=== PATIENT | male | born 1995 | race Hispanic/Latino ===

== ENCOUNTER 2018-04-01 08:53 | Emergency (ER) | payer OTHER, BC ==
[2018-04-01 08:59] VITALS: BMI 30.3
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
[2018-04-01 09:48] VITALS: RESP 18; TEMP 98.2; O2SAT 99
--- NOTE | 2018-04-01 10:33 | RAD ---
PROCEDURE: Cervical Spine Radiographs. HISTORY: Pain. COMPARISON: None. FINDINGS: BONES: Alignment maintained. No fracture. Dens Intact. DISC SPACES: Normal. SOFT TISSUES: Normal. No prevertebral soft tissue swelling. OTHER FINDINGS: None. IMPRESSION: Normal cervical spine radiographs
[2018-04-01 10:48] VITALS: BP 122/76; PULSE 76
== END 2018-04-01 10:49 | disposition home or self-care (01) ==
LOC: ED 08:53
DX: S13.4XXA Sprain of ligaments of cervical spine, initial encounter (principal); V43.52XA Car driver injured in collision with other type car in traffic accident, initial encounter; Y92.410 Unspecified street and highway as the place of occurrence of the external cause
CPT/HCPCS: 72050; 96372; 99285; J1885

== ENCOUNTER 2019-01-10 18:37 | Emergency (ER) | payer BC, OTHER ==
[2019-01-10 18:37] VITALS: BMI 30.3
[2019-01-10 19:05] VITALS: RESP 18; TEMP 99.4
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
[2019-01-10 21:19] VITALS: BP 132/85; PULSE 85; O2SAT 100
== END 2019-01-10 20:30 | disposition home or self-care (01) ==
LOC: ED 18:37
DX: R21 Rash and other nonspecific skin eruption (principal)